=== PATIENT | male | born 1955 | race Caucasian/White ===

== ENCOUNTER 2024-01-25 12:59 | Outpatient (RCR) | payer BC, SELFPAY | END 2024-01-25 23:59 | disposition home or self-care (01) | LOC: RPT 12:59 | PROVIDERS: ATTENDING PHYSICIAN Orthopaedic Surgery; FAMILY PHYSICIAN Internal Medicine Geriatric Medicine | DX: M17.12 Unilateral primary osteoarthritis, left knee (principal); Z73.6 Limitation of activities due to disability; S83.412D Sprain of medial collateral ligament of left knee, subsequent encounter; S83.512D Sprain of anterior cruciate ligament of left knee, subsequent encounter; X58.XXXD Exposure to other specified factors, subsequent encounter | CPT/HCPCS: 97010; 97110; 97140; 97162 ==

== ENCOUNTER 2024-02-21 16:53 | Outpatient (RCR) | payer BC, SELFPAY | END 2024-02-21 23:59 | disposition home or self-care (01) | LOC: RPT 16:53 | PROVIDERS: ATTENDING PHYSICIAN Orthopaedic Surgery; FAMILY PHYSICIAN Internal Medicine Geriatric Medicine | DX: M17.12 Unilateral primary osteoarthritis, left knee (principal); S83.412D Sprain of medial collateral ligament of left knee, subsequent encounter; S83.512D Sprain of anterior cruciate ligament of left knee, subsequent encounter; Z73.6 Limitation of activities due to disability | CPT/HCPCS: 97110; 97112; 97530 ==

== ENCOUNTER 2024-03-22 16:54 | Outpatient (RCR) | payer BC, SELFPAY | END 2024-03-22 23:59 | disposition home or self-care (01) | LOC: RPT 16:54 | PROVIDERS: ATTENDING PHYSICIAN Orthopaedic Surgery; FAMILY PHYSICIAN Internal Medicine Geriatric Medicine | DX: M17.12 Unilateral primary osteoarthritis, left knee (principal); S83.412D Sprain of medial collateral ligament of left knee, subsequent encounter; S83.512D Sprain of anterior cruciate ligament of left knee, subsequent encounter; Z73.6 Limitation of activities due to disability; M62.81 Muscle weakness (generalized) | CPT/HCPCS: 97110; 97112; 97140; 97530 ==

== ENCOUNTER 2024-04-05 16:57 | Outpatient (RCR) | payer BC, SELFPAY | END 2024-04-06 07:36 | disposition home or self-care (01) | LOC: RPT 16:57 | PROVIDERS: ATTENDING PHYSICIAN Orthopaedic Surgery; FAMILY PHYSICIAN Internal Medicine Geriatric Medicine | DX: M17.12 Unilateral primary osteoarthritis, left knee (principal); S83.412D Sprain of medial collateral ligament of left knee, subsequent encounter; S83.512D Sprain of anterior cruciate ligament of left knee, subsequent encounter; Z73.6 Limitation of activities due to disability | CPT/HCPCS: 97110; 97112; 97530 ==

== ENCOUNTER → 2024-04-07 08:23 | Outpatient (REF) | payer BC, SELFPAY ==
[2024-04-07 09:29] LABS: % Basophils 1.4 % (0-2); % Eosinophils 1.4 % (0-6); % Immature Granulocytes 0.2 % (0-0.5); % Lymphocytes 38.8 % (20.5-51.1); % Monocytes 6.5 % (1.7-9.3); % Neutrophils 51.7 % (42.2-75.2); Absolute Basophils 0.1 10^3/uL (0-0.2); Absolute Eosinophils 0.1 10^3/uL (0-0.7); Absolute Lymphocytes 1.7 10^3/uL (1.2-3.4); Absolute Monocytes 0.3 10^3/uL (0.1-0.6); Absolute Neutrophils 2.2 10^3/uL (1.4-6.5); Hematocrit 41.5 % (39.0-52.0); Hemoglobin 12.5 g/dL (13.0-18.0); Mean Corp Hgb Conc. 30.1 g/dL (33.0-37.0); Mean Corpuscular Hgb 19.9 pg (27.0-31.0); Mean Corpuscular Volume 66.2 fL (80.0-94.0); Mean Platelet Volume 9.3 fL (7.4-10.4); Nucleated Red Blood Cells % 0 % (-); Platelet Count 200 10^3/uL (130-400); Red Blood Cell Count 6.27 10^6/uL (4.70-6.10); Red Cell Dist. Width 19.2 % (11.5-14.5); White Blood Cell Count 4.3 10^3/uL (4.8-10.8)
[2024-04-07 09:46] LABS: Urine Albumin Negative (Neg - Trace); Urine Bilirubin Negative (Negative); Urine Character Clear (Clear); Urine Color Yellow; Urine Glucose Negative (Negative); Urine Ketone Negative (Negative); Urine Leukocyte Negative (Negative); Urine Nitrite Negative (Negative); Urine Occult Blood Negative (Negative); Urine Urobilinogen Negative (Neg - 1+); Urine pH 6.5 (5.0-9.0)
[2024-04-07 10:20] LABS: ALT (SGPT) 26 U/L (0-50); AST (SGOT) 22 U/L (17-59); Albumin 3.9 g/dl (3.5-5.0); Alkaline Phosphatase 49 U/L (38-126); Blood Urea Nitrogen 16 mg/dl (9-20); Calcium 9.4 mg/dl (8.4-10.2); Carbon Dioxide 29 mmol/L (22-30); Chloride 106 mmol/L (98-107); Glucose 155 mg/dl (70-99); HDL Cholesterol 39 mg/dl; LDL Cholesterol, Calculated 81 mg/dl; Potassium 4.6 mmol/L (3.5-5.1); Sodium 137 mmol/L (135-145); Total Bilirubin 0.7 mg/dl (0.2-1.3); Total Cholesterol 136 mg/dl (50-199); Total Protein 6.3 g/dl (6.3-8.2); Triglyceride 84 mg/dl (10-149); Very Low Density Lipoprotein 16 mg/dl (0-30); eGFR > 60.00
[2024-04-07 10:43] LABS: Urine Protein < 5 mg/dl
== END ==
LOC: REG 08:23
PROVIDERS: ATTENDING PHYSICIAN Internal Medicine Endocrinology, Diabetes & Metabolism; FAMILY PHYSICIAN Internal Medicine Geriatric Medicine
DX: E11.9 Type 2 diabetes mellitus without complications (principal); I10 Essential (primary) hypertension; E78.2 Mixed hyperlipidemia; K21.9 Gastro-esophageal reflux disease without esophagitis; G47.33 Obstructive sleep apnea (adult) (pediatric); N40.1 Benign prostatic hyperplasia with lower urinary tract symptoms; R06.02 Shortness of breath
CPT/HCPCS: 36415; 80053; 80061; 81003; 82570; 84156; 85025

== ENCOUNTER → 2024-08-13 07:40 | Outpatient (REF) | payer BC, SELFPAY ==
[2024-08-13 08:29] LABS: % Basophils 0.9 % (0-2); % Eosinophils 1.5 % (0-6); % Immature Granulocytes 0.2 % (0-0.5); % Lymphocytes 38.7 % (20.5-51.1); % Neutrophils 52.7 % (42.2-75.2); Absolute Basophils 0.1 10^3/uL (0-0.2); Absolute Eosinophils 0.1 10^3/uL (0-0.7); Absolute Lymphocytes 2.1 10^3/uL (1.2-3.4); Absolute Monocytes 0.3 10^3/uL (0.1-0.6); Absolute Neutrophils 2.8 10^3/uL (1.4-6.5); Hematocrit 40.4 % (39.0-52.0); Hemoglobin 12.4 g/dL (13.0-18.0); Mean Corp Hgb Conc. 30.7 g/dL (33.0-37.0); Mean Corpuscular Volume 65.1 fL (80.0-94.0); Mean Platelet Volume 9.5 fL (7.4-10.4); Nucleated Red Blood Cells % 0 % (-); Platelet Count 188 10^3/uL (130-400); Red Blood Cell Count 6.21 10^6/uL (4.70-6.10); Red Cell Dist. Width 18.8 % (11.5-14.5); Urine Albumin Negative (Neg - Trace); Urine Bilirubin Negative (Negative); Urine Character Clear (Clear); Urine Color Yellow; Urine Glucose 2+ (Negative); Urine Ketone Negative (Negative); Urine Leukocyte Negative (Negative); Urine Nitrite Negative (Negative); Urine Occult Blood Trace (Negative); Urine Urobilinogen Negative (Neg - 1+); White Blood Cell Count 5.3 10^3/uL (4.8-10.8)
[2024-08-13 08:59] LABS: ALT (SGPT) 31 U/L (0-50); AST (SGOT) 23 U/L (17-59); Albumin 4.1 g/dl (3.5-5.0); Alkaline Phosphatase 53 U/L (38-126); Blood Urea Nitrogen 25 mg/dl (9-20); Calcium 9.6 mg/dl (8.4-10.2); Carbon Dioxide 26 mmol/L (22-30); Chloride 105 mmol/L (98-107); Glucose 193 mg/dl (70-99); HDL Cholesterol 32 mg/dl; LDL Cholesterol, Calculated 78 mg/dl; Potassium 4.5 mmol/L (3.5-5.1); Sodium 143 mmol/L (135-145); Total Bilirubin 0.5 mg/dl (0.2-1.3); Total Cholesterol 148 mg/dl (50-199); Total Protein 6.3 g/dl (6.3-8.2); Triglyceride 194 mg/dl (10-149); Very Low Density Lipoprotein 38 mg/dl (0-30)
[2024-08-13 09:14] LABS: Vitamin D, 25-OH*** 15.9 ng/mL (30-80)
[2024-08-13 09:18] LABS: Urine Red Blood Cell 0-2 /HPF (0-2); Urine Squamous Cell 0-2 /LPF (Few); Urine White Cell 0-2 /HPF (0-5)
[2024-08-13 09:49] LABS: Microalbumin, Random Urine 1.7 mg/dl (0.6-1.7); Microalbumin/creatinine Ratio 10.7 mg/g
[2024-08-13 11:28] LABS: Glycohemoglobin (HgbA1c) 8.4 % (4.0-5.6)
== END ==
LOC: REG 07:40
PROVIDERS: ATTENDING PHYSICIAN Internal Medicine Geriatric Medicine
DX: E11.9 Type 2 diabetes mellitus without complications (principal); I10 Essential (primary) hypertension; E78.2 Mixed hyperlipidemia; K21.9 Gastro-esophageal reflux disease without esophagitis; G47.33 Obstructive sleep apnea (adult) (pediatric); N40.1 Benign prostatic hyperplasia with lower urinary tract symptoms; R06.02 Shortness of breath; I11.9 Hypertensive heart disease without heart failure; E11.41 Type 2 diabetes mellitus with diabetic mononeuropathy; R09.81 Nasal congestion; Z13.89 Encounter for screening for other disorder; L30.0 Nummular dermatitis
CPT/HCPCS: 36415; 80053; 80061; 81003; 81015; 82043; 82306; 82570; 83036; 85025

== ENCOUNTER → 2024-11-22 06:18 | Outpatient (REF) | payer BC, SELFPAY ==
[2024-11-22 07:17] LABS: % Basophils 1.3 % (0-2); % Eosinophils 1.7 % (0-6); % Immature Granulocytes 0.2 % (0-0.5); % Lymphocytes 40.8 % (20.5-51.1); % Monocytes 6.7 % (1.7-9.3); % Neutrophils 49.3 % (42.2-75.2); Absolute Basophils 0.1 10^3/uL (0-0.2); Absolute Eosinophils 0.1 10^3/uL (0-0.7); Absolute Lymphocytes 1.9 10^3/uL (1.2-3.4); Absolute Monocytes 0.3 10^3/uL (0.1-0.6); Absolute Neutrophils 2.4 10^3/uL (1.4-6.5); Hematocrit 40.1 % (39.0-52.0); Hemoglobin 12.3 g/dL (13.0-18.0); Mean Corp Hgb Conc. 30.7 g/dL (33.0-37.0); Mean Corpuscular Hgb 19.8 pg (27.0-31.0); Mean Corpuscular Volume 64.6 fL (80.0-94.0); Mean Platelet Volume 9.1 fL (7.4-10.4); Nucleated Red Blood Cells % 0 % (-); Platelet Count 195 10^3/uL (130-400); Red Blood Cell Count 6.21 10^6/uL (4.70-6.10); Red Cell Dist. Width 18.8 % (11.5-14.5); White Blood Cell Count 4.8 10^3/uL (4.8-10.8)
[2024-11-22 07:18] LABS: Urine Albumin Trace (Neg - Trace); Urine Bilirubin Negative (Negative); Urine Character Clear (Clear); Urine Color Yellow; Urine Glucose Negative (Negative); Urine Ketone Negative (Negative); Urine Leukocyte Negative (Negative); Urine Nitrite Negative (Negative); Urine Occult Blood Trace (Negative); Urine Urobilinogen Negative (Neg - 1+)
[2024-11-22 07:35] LABS: ALT (SGPT) 26 U/L (0-50); AST (SGOT) 19 U/L (17-59); Albumin 4.2 g/dl (3.5-5.0); Alkaline Phosphatase 38 U/L (38-126); Blood Urea Nitrogen 24 mg/dl (9-20); Calcium 9.4 mg/dl (8.4-10.2); Carbon Dioxide 29 mmol/L (22-30); Chloride 104 mmol/L (98-107); Glucose 108 mg/dl (70-99); HDL Cholesterol 36 mg/dl; LDL Cholesterol, Calculated 94 mg/dl; Potassium 4.6 mmol/L (3.5-5.1); Sodium 139 mmol/L (135-145); Total Bilirubin 0.6 mg/dl (0.2-1.3); Total Cholesterol 149 mg/dl (50-199); Total Protein 6.5 g/dl (6.3-8.2); Triglyceride 99 mg/dl (10-149); Very Low Density Lipoprotein 19 mg/dl (0-30); eGFR > 60.00
[2024-11-22 08:03] LABS: Urine Mucus Few
[2024-11-22 08:06] LABS: Urine Amorphous Seen; Urine White Cell 0-2 /HPF (0-5)
[2024-11-22 10:41] LABS: Glycohemoglobin (HgbA1c) 8.5 % (4.0-5.6)
[2024-11-23 22:38] LABS: C-Peptide 0.7 ng/mL (0.5-3.3)
== END ==
LOC: REG 06:18
PROVIDERS: ATTENDING PHYSICIAN Internal Medicine Geriatric Medicine
DX: E11.9 Type 2 diabetes mellitus without complications (principal); I10 Essential (primary) hypertension; E78.2 Mixed hyperlipidemia; K21.9 Gastro-esophageal reflux disease without esophagitis; G47.33 Obstructive sleep apnea (adult) (pediatric); N40.1 Benign prostatic hyperplasia with lower urinary tract symptoms; R06.02 Shortness of breath; I11.9 Hypertensive heart disease without heart failure; E11.41 Type 2 diabetes mellitus with diabetic mononeuropathy; R09.81 Nasal congestion; Z13.89 Encounter for screening for other disorder; L30.0 Nummular dermatitis; E55.9 Vitamin D deficiency, unspecified
CPT/HCPCS: 36415; 80053; 80061; 81003; 81015; 83036; 84681; 85025

== ENCOUNTER → 2024-12-28 14:19 | Outpatient (REF) | payer BC, SELFPAY | LOC: RAD 14:19 | PROVIDERS: ATTENDING PHYSICIAN Internal Medicine Geriatric Medicine | DX: R31.9 Hematuria, unspecified (principal) | CPT/HCPCS: 76770 ==

== ENCOUNTER → 2025-04-17 07:32 | Outpatient (REF) | payer BC, SELFPAY ==
[2025-04-17 08:52] LABS: Glycohemoglobin (HgbA1c) 8.6 % (4.0-5.6)
[2025-04-17 09:07] LABS: Microalbumin, Random Urine 2.3 mg/dl (0.6-1.7)
[2025-04-17 09:40] LABS: ALT (SGPT) 30 U/L (0-50); AST (SGOT) 19 U/L (17-59); Albumin 4.1 g/dl (3.5-5.0); Alkaline Phosphatase 37 U/L (38-126); Blood Urea Nitrogen 19 mg/dl (9-20); Calcium 9.4 mg/dl (8.4-10.2); Carbon Dioxide 28 mmol/L (22-30); Chloride 110 mmol/L (98-107); Glucose 146 mg/dl (70-99); HDL Cholesterol 32 mg/dl; LDL Cholesterol, Calculated 96 mg/dl; Potassium 4.6 mmol/L (3.5-5.1); Sodium 143 mmol/L (135-145); Total Bilirubin 0.7 mg/dl (0.2-1.3); Total Cholesterol 147 mg/dl (50-199); Total Protein 6.4 g/dl (6.3-8.2); Triglyceride 98 mg/dl (10-149); Very Low Density Lipoprotein 19 mg/dl (0-30); eGFR > 60.00
== END ==
LOC: REG 07:32
PROVIDERS: ATTENDING PHYSICIAN Internal Medicine Endocrinology, Diabetes & Metabolism; FAMILY PHYSICIAN Internal Medicine Geriatric Medicine
DX: E11.9 Type 2 diabetes mellitus without complications (principal)
CPT/HCPCS: 36415; 80053; 80061; 82043; 82570; 83036

== ENCOUNTER → 2025-09-14 07:15 | Outpatient (REF) | payer BC, SELFPAY ==
[2025-09-14 08:55] LABS: ALT (SGPT) 31 U/L (0-50); AST (SGOT) 20 U/L (17-59); Albumin 4.1 g/dl (3.5-5.0); Alkaline Phosphatase 39 U/L (38-126); Blood Urea Nitrogen 22 mg/dl (9-20); Calcium 9.3 mg/dl (8.4-10.2); Carbon Dioxide 30 mmol/L (22-30); Chloride 106 mmol/L (98-107); Glucose 166 mg/dl (70-99); Potassium 4.2 mmol/L (3.5-5.1); Sodium 141 mmol/L (135-145); Total Protein 6.5 g/dl (6.3-8.2); eGFR > 60.00
[2025-09-14 10:32] LABS: Glycohemoglobin (HgbA1c) 9.5 % (4.0-5.6)
== END ==
LOC: REG 07:15
PROVIDERS: ATTENDING PHYSICIAN Internal Medicine Endocrinology, Diabetes & Metabolism; FAMILY PHYSICIAN Internal Medicine Geriatric Medicine
DX: E11.9 Type 2 diabetes mellitus without complications (principal)
CPT/HCPCS: 36415; 80053; 83036

== ENCOUNTER 2025-11-16 11:59 | Inpatient (IN) | payer BC, SELFPAY ==
[2025-11-15 14:42] VITALS: BP 186/98
[2025-11-15 15:12] LABS: Hematocrit 38.0 % (39.0-52.0); Hemoglobin 11.7 g/dL (13.0-18.0); Mean Corp Hgb Conc. 30.8 g/dL (33.0-37.0); Mean Corpuscular Volume 63.8 fL (80.0-94.0); Nucleated Red Blood Cells % 0 % (-); Platelet Count 203 10^3/uL (130-400); Red Cell Dist. Width 18.6 % (11.5-14.5)
[2025-11-15 15:23] LABS: ALT (SGPT) 28 U/L (0-50); AST (SGOT) 25 U/L (17-59); Albumin 3.9 g/dl (3.5-5.0); Alkaline Phosphatase 44 U/L (38-126); Blood Urea Nitrogen 21 mg/dl (9-20); Calcium 9.0 mg/dl (8.4-10.2); Carbon Dioxide 25 mmol/L (22-30); Chloride 106 mmol/L (98-107); Glucose 106 mg/dl (70-99); Potassium 4.1 mmol/L (3.5-5.1); Sodium 137 mmol/L (135-145); Total Protein 6.2 g/dl (6.3-8.2); eGFR > 60.00
--- NOTE | 2025-11-15 18:19 | ED.GENMED ---
History of Present Illness
<Marisela Green PA-C - Last Filed: 11/15/25 20:34>
General
Chief Complaint: Skin Problem
Time Seen by Provider: 11/15/25 18:05
History of Present Illness
History of Present Illness:
Daquan is a 70-year-old male with past medical history of insulin-dependent diabetes who presents complaining of left lower leg wound after hitting it on a cardboard box several days ago at work. Reports that wounds have not been getting any better
and he noticed redness surrounding them which prompted him to come for evaluation. Notes that he has had chronic lower extremity edema for the past 3 to 4 years and is unable to control with just compression socks.
Past History
<Marisela Green PA-C - Last Filed: 11/15/25 20:34>
Past History
ED Past Medical History: IDDM
ED Past Surgical History: Orthopedic
Social History
Tobacco: Non-smoker
Alcohol: None
Drug: None
Personal:
Living: with family
Employment: Employed
Family History
Family History: Diabetes; Negative Hypertension, Early CAD, Asthma or Cancer
Phy Exam
<Marisela Green PA-C - Last Filed: 11/15/25 20:34>
General Physical Exam
General Presentation: well appearing and no apparent distress
General Skin: warm and dry
General Habitus: normal
General Mental: alert
General Hydration: appears well hydrated
ENT Exam
ENT Exam: EOMI, pharynx normal, neck supple and normocephalic
Eye Exam
Eye Exam: PERRL, cornea clear and conjunctiva normal
Cardiovascular Exam
Cardiovascular Exam: regular rate/rhythm, no edema, no murmur and normal peripheral pulses
Pulmonary Exam
Pulmonary Exam: lungs clear, no respiratory distress, no rales, no crackles, no rhonchi, no stridor, no wheezing and no cough
Gastrointestinal Exam
Gastrointestinal Exam: normal bowel sounds, non tender, soft, no organomegaly, no pulsatile mass and non distended
Neurological Exam
Neurological Exam: alert, oriented x3, no motor deficits and speech normal
Musculoskeletal Exam
Musculoskeletal Exam: edema (Bilateral lower extremity edema)
Skin Exam
Skin Exam: erythema, warmth and other (7 x 4 cm wound to left anterior lower leg with surrounding erythema and warmth)
Psychiatric Exam
Psychiatric Exam: normal mood/affect
Course
<Marisela Green PA-C - Last Filed: 11/15/25 20:34>
Orders/Labs/Results
Orders:
Orders
11/15/25 14:53
Complete Blood Count/With Diff Urgent
Comprehensive Metabolic Panel Urgent
NT-proBNP Urgent
11/15/25 18:25
CeFAZolin 2 GRAM [Ancef] 2 grams in 10 ml IV NOW
11/15/25 19:00
Admit/Transfer Patient As Directed
Co-Sign Provider:
Level of Care: Observation services
Assign to:: Medical/Surgical
Physician / Group: Gabriel
Diagnosis: Cellulitis
11/15/25 19:01
Code Status As Directed
Resuscitation Status: Full Code
PRN Pain Medication Management As Directed
May give lesser potent ordered pain med per pt: Yes
preference::
Protocol:: Medication orders for pain may be administered in a
manner that supports deferring to patient preference
when the pt is:
- Requesting an ordered lesser potent pain medication.
Least to most potent pain medications are defined
as: acetaminophen < NSAID < tramadol < opioids
(morphine, oxycodone, hydromorphone).
- Requesting a lesser dose of the same medication IF
ORDERED.
- Requesting a less intrusive route of administration
if both routes are prescribed by the provider (PO <
IV).
Abnormal Lab Results
11/15/25
14:53
Hgb 11.7 L g/dL
(13.0-18.0)
Hct 38.0 L %
(39.0-52.0)
MCV 63.8 L fL
(80.0-94.0)
MCH 19.6 L pg
(27.0-31.0)
MCHC 30.8 L g/dL
(33.0-37.0)
RDW 18.6 H %
(11.5-14.5)
BUN 21 H mg/dl
(9-20)
Glucose 106 H mg/dl
(70-99)
Total Protein 6.2 L g/dl
(6.3-8.2)
11/15/25 14:53
11/15/25 14:53
Vital Signs
Initial and Last Documented VS:
Initial Vital Signs
Temp Pulse Resp BP Pulse Ox
36.6 C 91 18 186/98 96
11/15/25 14:42 11/15/25 14:42 11/15/25 14:42 11/15/25 14:42 11/15/25 14:42
Last Documented Vital Signs
Temp Pulse Resp BP Pulse Ox
36.8 C 68 14 166/84 98
11/15/25 18:35 11/15/25 18:35 11/15/25 18:35 11/15/25 18:35 11/15/25 18:35
Francislt;Randall Bradford, DO - Last Filed: 11/15/25 18:34>
Orders/Labs/Results
Orders:
Orders
11/15/25 14:53
Complete Blood Count/With Diff Urgent
Comprehensive Metabolic Panel Urgent
NT-proBNP Urgent
11/15/25 18:25
CeFAZolin 2 GRAM [Ancef] 2 grams in 10 ml IV NOW
11/15/25 19:00
Admit/Transfer Patient As Directed
Co-Sign Provider:
Level of Care: Observation services
Assign to:: Medical/Surgical
Physician / Group: Gabriel
Diagnosis: Cellulitis
11/15/25 19:01
Code Status As Directed
Resuscitation Status: Full Code
PRN Pain Medication Management As Directed
May give lesser potent ordered pain med per pt: Yes
preference::
Protocol:: Medication orders for pain may be administered in a
manner that supports deferring to patient preference
when the pt is:
- Requesting an ordered lesser potent pain medication.
Least to most potent pain medications are defined
as: acetaminophen < NSAID < tramadol < opioids
(morphine, oxycodone, hydromorphone).
- Requesting a lesser dose of the same medication IF
ORDERED.
- Requesting a less intrusive route of administration
if both routes are prescribed by the provider (PO <
IV).
Abnormal Lab Results
11/15/25
14:53
Hgb 11.7 L g/dL
(13.0-18.0)
Hct 38.0 L %
(39.0-52.0)
MCV 63.8 L fL
(80.0-94.0)
MCH 19.6 L pg
(27.0-31.0)
MCHC 30.8 L g/dL
(33.0-37.0)
RDW 18.6 H %
(11.5-14.5)
BUN 21 H mg/dl
(9-20)
Glucose 106 H mg/dl
(70-99)
Total Protein 6.2 L g/dl
(6.3-8.2)
11/15/25 14:53
11/15/25 14:53
Vital Signs
Initial and Last Documented VS:
Initial Vital Signs
Temp Pulse Resp BP Pulse Ox
36.6 C 91 18 186/98 96
11/15/25 14:42 11/15/25 14:42 11/15/25 14:42 11/15/25 14:42 11/15/25 14:42
Last Documented Vital Signs
Temp Pulse Resp BP Pulse Ox
36.8 C 68 14 166/84 98
11/15/25 18:35 11/15/25 18:35 11/15/25 18:35 11/15/25 18:35 11/15/25 18:35
<Marisela Green PA-C - Last Filed: 11/15/25 20:34>
MDM/Problems Addressed
Differential Diagnosis Includes:
Exam consistent with wound from trauma early this week and Surrounding cellulitis. Discussed outpatient management with oral antibiotics and close follow-up however patient prefers given his complex medical history and poor healing wounds to be
admitted for antibiotics and evaluation. Discussed case with hospitalist who accept patient to their service. 1 dose of Ancef given in the emergency department.
<Marisela Green PA-C - Last Filed: 11/15/25 20:34>
*Pulse Oximetry
SaO2: 96
Oxygen Mode of Delivery: Room air
Patient hypoxic: no
*Critical Care Note
Total Time (30-74mins, 75-104mins- exclusive of procedures): Not Applicable
ED Attending Note
<Marisela Green PA-C - Last Filed: 11/15/25 20:34>
-
Portions of this chart may have been created with voice recognition software.� Occasional wrong word or��sound alike� substitutions may have occurred due to the inherent limitations of voice recognition software.
<Randall Bradford, DO - Last Filed: 11/15/25 18:34>
ED Attending Note
Patient seen and examined by attending physician: Yes
I performed the substantive portion of visit, reviewed & personally made and approve the management plan that is documented in note by myself or JONATHAN.: Yes
ED Attending Note:
I have seen and evaluated the patient with a [id number] encounter. I have spoken to the advance practicer provider and involved in the medical history, the physical exam, medical decision making.
Evaluation and management service: agree unless noted differently below.
Results interpretation: agree unless noted differently below.
Focused HPI: 70-year-old male presenting with wounds noted to his left leg. Patient states this started few days ago. Patient complains of worsening pain
Physical exam: Bilateral leg edema noted. 2 large wounds noted to anterior aspect of left mid leg with surrounding cellulitic changes. Distal pulses +2
Medical Decision Making: Given his history of diabetes and the nonhealing leg wounds, will start antibiotics and admit
Discharge Plan
Interventions
Interventions:
*General Assessment Last Done: 11/15/25 14:45
*Neglect/Abuse Screening Last Done: 11/15/25 14:45
*ED COVID-19 Vaccine History Last Done: 11/15/25 14:45
*ED Influenza Vaccine History Last Done: 11/15/25 14:45
[facility] Risk Assessment Tool Last Done: 11/15/25 18:35
*Risk Screen - Suicide (C-SSRS) Last Done: 11/15/25 14:45
ED-Skin Assessment Last Done: 11/15/25 18:40
[2025-11-15 18:35] VITALS: BP 166/84; BMI 35.4
[2025-11-15] MEDS: ANCEF 10 IV (18:45)
--- NOTE | 2025-11-15 18:47 | HPS.HSE ---
Family Physician
-
Family Physician: Michoacano Jolly
Chief Complaint
-
Left lower extremity cellulitis
History of Present Illness
This is a 70-year-old male with past medical history significant for insulin-dependent diabetes and chronic lymphedema who presents to the emergency department with a nonhealing wound in the left lower extremity as well as swelling and tenderness.
Patient had about minor trauma with excoriation and laceration to the left lower extremity when he smacked his leg against a Wood box. He has been applying topical agents however he has developed worsening redness. He reports that he is prone to
these wounds due to his chronic swelling. He states he started getting swelling in his legs about 4 years ago. A workup was negative for congestive heart failure. He is seeking some help regarding management of his lymphedema. He he denies any
recent antibiotic use. He denies any recent hospitalization. He has not had any fevers or chills.
Patient reports that he has been unable to obtain his long-acting insulin since February. He has been managing with Premeal insulin and diet control. He states that his morning glucose was around over 200 this morning whereas yesterday it was 107.
Unknown last A1c.
In the emergency department he was afebrile, blood pressure was elevated at 186/98, pulse rate was 91, oxygen saturation was 96% with a temp of 98.5. CBC was completely unremarkable. Electrolytes BUN/creatinine were all within normal range.
Medical History
Past Medical History
Past Medical History: Reports IDDM and Other (Chronic lymphedema)
Past Surgical History: Reports Appendectomy
Social History
Tobacco: Non-smoker
Alcohol: None
Drug: None
Personal:
Living: Alone
Employment: Employed
Family History
Family History: Not pertinent
Allergies / Home Medications
Allergies reflects when Allergies were last updated in [facility].
Home Medications with original date entered in [facility]
Allergy/Medication List:
Allergies
Allergy/AdvReac Type Severity Reaction Status Date / Time
No Known Allergies Allergy Verified 11/15/25 14:46
Home Medications
insulin aspart U-100 100 unit/mL subcutaneous solution (Novolog U-100 Insulin aspart) 1 dose SC AC 12/31/11
insulin glargine 100 unit/mL subcutaneous solution (Lantus U-100 Insulin) 40 units SC HS 12/31/11
multivitamin (Ivs-Xyddeq-Slouf tablet) 1 ea PO MOTH 12/31/11
cephalexin 500 mg capsule 500 mg PO BID #14 caps 07/30/15
ciprofloxacin HCl 0.3 % eye drops 2 drp ophthalmic (eye) Q4H 5 days #5 mL 02/17/23
oxycodone-acetaminophen 5 mg-325 mg tablet (Percocet) 1 tab PO TID PRN Pain #10 tabs 12/04/23
Review of Systems
-
Constitutional: Reports No Symptoms
EENT: Reports No Symptoms
Respiratory: Reports No Symptoms
Cardiac: Reports No Symptoms
Abdomen/GI: Reports No Symptoms
: Reports No Symptoms
Musculoskeletal: Reports No Symptoms
Skin: Reports Rash
Neurological: Reports No Symptoms
Endocrine: Reports No Symptoms
Hematologic/Lymphatic: Reports No Symptoms
Psych: Reports No Symptoms
Physical Exam
Vital Signs
Vital Signs
Temp Pulse Resp BP Pulse Ox
98.2 F 68 14 166/84 98
11/15/25 18:35 11/15/25 18:35 11/15/25 18:35 11/15/25 18:35 11/15/25 18:35
Physical Exam
General: Well Developed, Well Nourished and No Apparent Distress
HEENT: NormoCephalic, Moist mucous membranes and Atraumatic
Respiratory: Clear
Cardiac: S1/S2 and Regular Rhythm; No Murmur or Rub
GI: Soft, Non Tender, Non Distended and Normal Bowel Sounds; No Organomegaly
Rectal: Deferred by Provider
Musculoskeletal: No Clubbing, No Cyanosis, Edema, Left Lower Extremity (2+ nonpitting) and Edema, Right Lower Extremity (2+ nonpitting)
Skin: Rash (Left lower extremity superficial laceration with a slightly open nondraining wound. He does have surrounding erythema, mild induration and tenderness to palpation consistent with cellulitis)
Neuro: AO x 3 and Nonfocal/grossly intact
Psych: Calm
Laboratory Results
-
11/15/25 14:53
11/15/25 14:53
Laboratory Results
Total Bilirubin 0.5 mg/dl (0.2-1.3) 11/15/25 14:53
AST 25 U/L (17-59) 11/15/25 14:53
ALT 28 U/L (0-50) 11/15/25 14:53
Alkaline Phosphatase 44 U/L (38-126) 11/15/25 14:53
Data Reviewed
-
Lab Data: Labs Reviewed by me
Old Records: Reviewed
Impression/Plan
-
IMPRESSION:
70-year-old or insulin-dependent diabetes who presents to ED with cellulitis of the left lower extremity after developing a superficial open wound from laceration against a cardboard box.
PLAN:
Cellulitis - LLE, no sepsis. Likely complicated by chronic lymphedema. No recent antibiotics and no recent hospitalizations.
- admit to med/surg observation
- IV cephalexin
- check mrsa swab
- wound care consult
- elevate both legs
- suggested compression stockens
- will start hctz given elevated bp
DM II - insulin dependent
- lantus 10 hs
- aspart 6 tidac
- low dose sliding scale for now
- check a1c
- needs case management for long acting insulin
HTN - denies h/o but SBP 180/98 here
- check ecg
- start hctz given edema
- monitor BP and consider initiating ARB
DVT PPX - lovenox sq
Code status - Full Code
--- NOTE | 2025-11-15 19:27 | EDRN ---
Pt has had LLE swelling, redness and 2 superficial wounds for the past few years. Pt says they were treated at one time but did not get better. Pt is insulin dependent diabetic and monitors his sugars. Today it was in the 200's and yesterday it
was 107. Pt says he is supposed to take insulin at nighttime but due to insurance and changing formulas, he has not taken it since February. Pt does take other insulin with meals. No fever/chills/cough, drainage from wounds. Pt says he cleans the
area daily, applies neosporin and wraps his LLE.
[2025-11-15 20:29] VITALS: BP 172/78
[2025-11-15 22:54] VITALS: BP 178/74
[2025-11-16 00:39] LABS: Glucose - Point of Care 196 mg/dl (70-99)
[2025-11-16 00:53] VITALS: BP 186/97; BMI 34.9
[2025-11-16] MEDS: LANTUS 0.1 UNITS SC ×2 (01:29→22:01)
--- NOTE | 2025-11-16 02:04 | PTCARENOTE ---
pt is aaox3, report pain and tenderness to LLE. LLE cellulitis w/ 2 spots - currently not draining, and erythema, mild induration. weak pedal pulse. pt has a hx of chronic lymphedema +2edema bilateral. legs elevated on pillow. pt reported pain w/
walking. pt oriented to room w/ call wesley in reach.
[2025-11-16] MEDS: ORETIC 12.5 MG PO ×2 (02:49→09:13)
[2025-11-16] MEDS: ANCEF 10 IV ×3 (02:50→18:23)
[2025-11-16 02:57] VITALS: BP 166/94
[2025-11-16] MEDS: XALATAN OPHTHALMIC SOLUTION BOTH EYES (02:57)
[2025-11-16 05:24] VITALS: BMI 34.9
[2025-11-16 07:00] VITALS: BP 169/91
[2025-11-16 07:26] LABS: Hematocrit 38.3 % (39.0-52.0); Hemoglobin 11.6 g/dL (13.0-18.0); Mean Corp Hgb Conc. 30.3 g/dL (33.0-37.0); Mean Corpuscular Volume 64.9 fL (80.0-94.0); Platelet Count 194 10^3/uL (130-400); Red Cell Dist. Width 18.4 % (11.5-14.5)
[2025-11-16 07:57] LABS: Blood Urea Nitrogen 20 mg/dl (9-20); Calcium 9.2 mg/dl (8.4-10.2); Carbon Dioxide 29 mmol/L (22-30); Chloride 107 mmol/L (98-107); Estimated Creatinine Clearance 71 ml/min; Glucose 159 mg/dl (70-99); Potassium 4.4 mmol/L (3.5-5.1); Sodium 139 mmol/L (135-145); eGFR > 60.00
[2025-11-16 08:39] LABS: Glucose - Point of Care 140 mg/dl (70-99)
[2025-11-16] MEDS: NOVOLOG FLEXPEN-LOW RESISTANCE SC ×2 (09:12→17:47)
[2025-11-16] MEDS: NOVOLOG FLEXPEN 8 UNITS SC ×3 (09:13→17:46)
--- NOTE | 2025-11-16 10:15 | CM ---
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
evaluation.
PCP: Dr. Jolly
Pharmacy: [facility] in [place]
Plan; Home when stable.
[2025-11-16 10:50] LABS: Glycohemoglobin (HgbA1c) 9.8 % (4.0-5.9)
[2025-11-16 12:53] LABS: Glucose - Point of Care 166 mg/dl (70-99)
[2025-11-16] MEDS: NOVOLOG FLEXPEN-LOW RESISTANCE 1 UNITS SC (13:22)
--- NOTE | 2025-11-16 14:06 | W.PN.HOSP.TC ---
Today's Communication/Plan
-
IV abx
start metformin
basal/bolus regimen-uncontrolled diabetes
monitor BP
Assessment / Plan
Assessment / Plan
General: Well Developed, Well Nourished and No Apparent Distress
HEENT: NormoCephalic, Moist mucous membranes and Atraumatic
Respiratory: Clear
Cardiac: S1/S2 and Regular Rhythm; No Murmur or Rub
GI: Soft, Non Tender, Non Distended and Normal Bowel Sounds; No Organomegaly
Rectal: Deferred by Provider
Musculoskeletal: No Clubbing, No Cyanosis, Edema, Left Lower Extremity (2+ nonpitting) and Edema, Right Lower Extremity (2+ nonpitting)
Skin: Rash (Left lower extremity superficial laceration with a slightly open nondraining wound. He does have surrounding erythema, mild induration and tenderness to palpation consistent with cellulitis)
Neuro: AO x 3 and Nonfocal/grossly intact
Psych: Calm
70-year-old or insulin-dependent diabetes who presents to ED with cellulitis of the left lower extremity after developing a superficial open wound from laceration against a cardboard box.
PLAN:
LLE cellulitis Likely complicated by chronic lymphedema. No recent antibiotics and no recent hospitalizations.
- IV cephalexin
- check mrsa swab
- wound care consult
- elevate both legs
DM II - insulin dependent
- lantus 10 hs
- aspart 6 tidac
- low dose sliding scale for now
- check a1c at 9.8
- also started metformin
- needs case management for long acting insulin
- Will need diabetic education.
HTN Parimary
- start hctz given edema
- monitor BP
DVT PPX - lovenox sq
Code status - Full Code
d/w with son over the phone details
will need close OP pcp f/u
Anticipated Discharge: > 48 hours
Subjective/Interval History
-
Date of Service: November 16, 2025
states of LE edema and injury of Left leg
Objective Data
-
Labs:
Laboratory Results
11/16/25
06:40
WBC 5.4
Hgb 11.6 L
Hct 38.3 L
Plt Count 194
Sodium 139
Potassium 4.4
Chloride 107
Carbon Dioxide 29
BUN 20
Creatinine 1.2
Glucose 159 H
Calcium 9.2
Vital Signs:
Vital Signs
Temp Pulse Resp BP Pulse Ox
97.8 F 66 14 169/91 97
11/16/25 07:00 11/16/25 07:00 11/16/25 07:00 11/16/25 07:00 11/16/25 07:00
Data Reviewed
-
Total Time Spent with Patient (in minutes): 55
[2025-11-16 15:00] VITALS: BP 168/95
[2025-11-16] MEDS: GLUCOPHAGE 500 MG PO (17:46)
[2025-11-16] MEDS: LOVENOX 40 MG SC (17:46)
[2025-11-16 17:47] LABS: Glucose - Point of Care 140 mg/dl (70-99)
[2025-11-16 21:48] LABS: Glucose - Point of Care 177 mg/dl (70-99)
[2025-11-16] MEDS: XALATAN OPHTHALMIC SOLUTION 1 DROP BOTH EYES (21:57)
[2025-11-16 23:09] VITALS: BP 174/95
[2025-11-17 01:58] LABS: Glucose - Point of Care 156 mg/dl (70-99)
[2025-11-17] MEDS: TYLENOL 650 MG PO ×2 (03:42→08:48)
[2025-11-17] MEDS: ANCEF 10 IV ×3 (03:45→18:07)
[2025-11-17 07:46] VITALS: BP 165/94
[2025-11-17 07:46] LABS: Glucose - Point of Care 187 mg/dl (70-99)
[2025-11-17] MEDS: ORETIC 12.5 MG PO (08:42)
[2025-11-17] MEDS: GLUCOPHAGE 500 MG PO ×2 (08:42→18:07)
[2025-11-17] MEDS: NOVOLOG FLEXPEN 8 UNITS SC ×3 (10:06→18:06)
[2025-11-17] MEDS: NOVOLOG FLEXPEN-LOW RESISTANCE 1 UNITS SC ×2 (10:06→18:06)
--- NOTE | 2025-11-17 11:20 | W.PN.HOSP.TC ---
Today's Communication/Plan
-
IV abx
insulin education
metformin
DM CABLE STRETCHER AND TESTER eval in am
wound care
Assessment / Plan
Assessment / Plan
General: Well Developed, Well Nourished and No Apparent Distress
HEENT: NormoCephalic, Moist mucous membranes and Atraumatic
Respiratory: Clear
Cardiac: S1/S2 and Regular Rhythm; No Murmur or Rub
GI: Soft, Non Tender, Non Distended and Normal Bowel Sounds; No Organomegaly
Rectal: Deferred by Provider
Musculoskeletal: No Clubbing, No Cyanosis, Edema, Left Lower Extremity (2+ nonpitting) and Edema, Right Lower Extremity (2+ nonpitting)
Skin: Rash (Left lower extremity superficial laceration with a slightly open nondraining wound. He does have surrounding erythema, mild induration and tenderness to palpation consistent with cellulitis)
Neuro: AO x 3 and Nonfocal/grossly intact
Psych: Calm
70-year-old or insulin-dependent diabetes who presents to ED with cellulitis of the left lower extremity after developing a superficial open wound from laceration against a cardboard box.
PLAN:
LLE cellulitis Likely complicated by chronic lymphedema. No recent antibiotics and no recent hospitalizations.
- IV cefazolin. Not much improvement. Cont additional 24h and reassess. Better to have evaluated by wound care in am.
- check mrsa swab -negative.
- wound care consult
- elevate both legs
DM II - insulin dependent
- lantus 10 hs
- aspart 6 tidac
- low dose sliding scale for now
- check a1c at 9.8
- also started metformin 500mg BID
- needs case management for long acting insulin
- Will need diabetic education.
HTN Parimary
- start hctz given edema
- monitor BP
-Per pt his BP was normal at recent PCP f/u. Would like avoid multiple BP meds. Trend for now.
DVT PPX - lovenox sq
Code status - Full Code
will need close OP pcp f/u
Anticipated Discharge: Within 24 hours
Subjective/Interval History
-
Date of Service: November 17, 2025
states of LLE pain
Objective Data
-
Vital Signs:
Vital Signs
Temp Pulse Resp BP Pulse Ox
97.5 F 78 18 165/94 95
11/17/25 07:46 11/17/25 07:46 11/17/25 07:46 11/17/25 07:46 11/17/25 11:02
I&O
11/16/25 11/17/25 11/18/25
06:59 06:59 06:59
Intake Total 480 / 480
Balance 480 / 480
Data Reviewed
-
Total Time Spent with Patient (in minutes): 55
[2025-11-17 11:56] LABS: Glucose - Point of Care 219 mg/dl (70-99)
[2025-11-17] MEDS: NOVOLOG FLEXPEN-LOW RESISTANCE 2 UNITS SC (13:15)
[2025-11-17 15:00] VITALS: BP 132/81
[2025-11-17 17:54] LABS: Glucose - Point of Care 154 mg/dl (70-99)
[2025-11-17] MEDS: LOVENOX 40 MG SC (18:07)
[2025-11-17] MEDS: LANTUS 0.1 UNITS SC (21:32)
[2025-11-17] MEDS: XALATAN OPHTHALMIC SOLUTION 1 DROP BOTH EYES (21:32)
[2025-11-17 21:42] LABS: Glucose - Point of Care 114 mg/dl (70-99)
[2025-11-17 23:15] VITALS: BP 160/88
[2025-11-18] MEDS: ANCEF 10 IV ×3 (03:49→18:06)
[2025-11-18 07:00] VITALS: BP 150/93
--- NOTE | 2025-11-18 07:28 | W.PN.HOSP.TC ---
Today's Communication/Plan
-
Continue cefazolin, added gabapentin
Assessment / Plan
Assessment / Plan
Impression:
70-year-old or insulin-dependent diabetes who presents to ED with cellulitis of the left lower extremity after developing a superficial open wound from laceration against a cardboard box.
Patient started on IV cefazolin, also started on insulin for uncontrolled diabetes.
Assessment/plan:
LLE Cellulitis (likely complicated by chronic lymphedema)
No recent antibiotics or hospitalizations.
Continue IV cefazolin , slowly improving.
Wound care consult in the morning.
MRSA swab checked � negative.
Elevate both legs.
11/18
Patient still with significant redness and now with neuropathic pain, required more monitoring as inpatient.
For now we will continue cefazolin, added gabapentin for neuropathy
Wound care consulted
Diabetes Mellitus Type II � Insulin Dependent-diabetic neuropathy
Lantus 10 units at bedtime (call the pharmacy to check coverage).
Aspart 6 units TID with meals.
Low-dose sliding scale for now.
Hemoglobin A1c: 9.8.
Started metformin 500 mg BID.
Needs case management for long-acting insulin.
Will require diabetic education.
Added gabapentin
Primary Hypertension
Started hydrochlorothiazide (HCTZ) given edema.
Monitor blood pressure.
Per patient, BP was normal at recent PCP follow-up; prefers to avoid multiple antihypertensives. Trend for now.
DVT Prophylaxis
Lovenox subcutaneous.
Code Status
Full Code
Diet: DM diet
Disposition: Continue cefazolin, added gabapentin
Total time spent on today's encounter was 55 minutes which included time spent in counseling the patient/family regarding diagnosis and treatment plan as listed above, goals of care, and symptom management. Case was discussed with nursing staff,
specialists, and care coordinators/case management. All labs and imaging personally reviewed by me. Remainder the time spent in detailed review of previous records, lab data, imaging, and other medical provider documentation.
Part of this note was created using voice recognition system. Occasional wrong word or �sound alike� substitutions may have inadvertently occurred due to the inherent limitations of voice recognition software. If noted kindly bring it to my
attention for correction.
Anticipated Discharge: Within 24 hours
Subjective/Interval History
-
Date of Service: November 18, 2025
Patient seen and examined at bedside, denies any chest pain or shortness of breath, patient complaining of neuropathic lower extremity pain more on the left.
Still significant redness in the left lower extremity and pain.
Objective Data
-
Vital Signs:
Vital Signs
Temp Pulse Resp BP Pulse Ox
98 F 76 18 160/88 98
11/17/25 23:15 11/17/25 23:15 11/17/25 23:15 11/17/25 23:15 11/18/25 04:11
I&O
11/17/25 11/18/25 11/19/25
06:59 06:59 06:59
Intake Total 480 / 480
Balance 480 / 480
Physical Exam
-
General: Well Developed, Well Nourished, No Apparent Distress and Comfortable
HEENT: Normocephalic, Atraumatic, Moist Mucous Membranes, No Ptosis, PERRLA and Nose Appears Normal
Respiratory: Clear to Auscultation and Non Labored Respirations
Cardiac: Regular Rhythm and S1/S2
Breast: Deferred by me
GI: Soft, Nontender, Nondistended and Normal Bowel Sounds
Genito-urinary: No Costovertebral Tender
Musculoskeletal: No Clubbing, No Cyanosis, No Edema, Edema, Right Lower Extrem and Edema, Left Lower Extrem
Skin: Warm, Lesions (Superficial 2 lesions on the left leg shaft.) and Other (Erythema)
Neuro: Awake, Alert, Oriented, AO x 3 and No Motor Deficits
Psych: Calm
Data Reviewed
-
Diagnostic Radiology: Image personally visualized and interpreted and Report Reviewed by me
CT Scan: Image personally visualized and interpreted and Report Reviewed by me
Ultrasound: Image personally visualized and interpreted and Report Reviewed by me
MRI: Image personally visualized and interpreted and Report Reviewed by me
Medical Tests (Nuc Med, Echo etc): Image personally visualized and interpreted and Report Reviewed by me
Labs: Labs Reviewed by me
Old Records: Reviewed
[2025-11-18 08:45] LABS: Glucose - Point of Care 143 mg/dl (70-99)
[2025-11-18] MEDS: NOVOLOG FLEXPEN-LOW RESISTANCE SC ×2 (09:50→17:34)
[2025-11-18] MEDS: GLUCOPHAGE 500 MG PO ×2 (09:53→18:04)
[2025-11-18] MEDS: ORETIC 12.5 MG PO (09:53)
[2025-11-18] MEDS: NOVOLOG FLEXPEN 8 UNITS SC ×3 (09:54→18:05)
--- NOTE | 2025-11-18 11:31 | WOUNDNOTE ---
[facility] RN note: Patient admitted with cellulitis of L leg
See H&P for complete history.
PMH: Past Medical History: Reports IDDM and Other (Chronic lymphedema)
Past Surgical History: Reports Appendectomy
Wound Location and type/assessment: Patient admitted with: L leg partial thickness ulcers and cellulitis. Patient reports he accidentally scraped leg on edge of cardboard box causing wounds. Patient assessed with Dr. Denise at bedside. Cellulitis
resolving and edema. + palpable pedal pulses. Base of wounds red, edges dark maroon. Patient reports painful upon cleaning or changing dressing. No odor and drainage small serosanguineous. Hgb A1c is 9.8, development educator on consult. Heels intact.
R lower medial leg with patch of dry skin vs rash, appears chronic. 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
Appetite: Good, encouraged better control of blood sugars to help with wound healing.
Pressure redistribution devices in place: On air mattress. Patient is ad bryan. L leg elevated on pillows. Leg elevation encouraged when sitting in recliner chair. Patient confirmed he has a recliner chair at home.
Plan: Local wound care applied today and baljeet wrap knee high, tolerating. Called [facility] for honey gel, can start tomorrow. Dr. Denise approved of the above. Supplies at bedside, wound care/compression teaching done with patient.
Will confirm orders with hospitalist and updated nurse Pat. Updated care plan and will follow as needed.
Note to case management of equipment requested for discharge: None.
Recommend follow up at wound care center upon discharge.
[2025-11-18 12:17] LABS: Glucose - Point of Care 185 mg/dl (70-99)
[2025-11-18] MEDS: NOVOLOG FLEXPEN-LOW RESISTANCE 1 UNITS SC (13:17)
[2025-11-18 15:00] VITALS: BP 140/74
--- NOTE | 2025-11-18 15:45 | CM ---
Addendum entered by Valencia Gandhi 11/19/25 13:57:
Confirmed with [facility] that Glargine is covered with his plan. Dc home today. no needs identified
Original Note:
Spoke with patient in room .
Informed him he was changed to inpatient .
Pt lives alone and will return to work after discahrge.
Explained he would have to be home bound for VN .
He will follow up with wound care center
PLAN Home no needs
[2025-11-18 17:27] LABS: Glucose - Point of Care 138 mg/dl (70-99)
[2025-11-18] MEDS: NEURONTIN 100 MG PO ×2 (18:04→21:55)
[2025-11-18] MEDS: LOVENOX 40 MG SC (18:04)
[2025-11-18 21:40] LABS: Glucose - Point of Care 150 mg/dl (70-99)
[2025-11-18] MEDS: XALATAN OPHTHALMIC SOLUTION 1 DROP BOTH EYES (21:55)
[2025-11-18] MEDS: LANTUS 0.1 UNITS SC (21:56)
[2025-11-18 23:00] VITALS: BP 142/86
[2025-11-19] MEDS: ANCEF 10 IV ×2 (03:46→12:45)
[2025-11-19 07:33] LABS: Glucose - Point of Care 159 mg/dl (70-99)
[2025-11-19 07:48] VITALS: BP 148/89
[2025-11-19 08:06] LABS: Blood Urea Nitrogen 19 mg/dl (9-20); Calcium 9.0 mg/dl (8.4-10.2); Carbon Dioxide 27 mmol/L (22-30); Chloride 100 mmol/L (98-107); Estimated Creatinine Clearance 71 ml/min; Glucose 157 mg/dl (70-99); Potassium 3.8 mmol/L (3.5-5.1); Sodium 134 mmol/L (135-145); eGFR > 60.00
[2025-11-19 08:15] LABS: Hematocrit 43.0 % (39.0-52.0); Hemoglobin 13.1 g/dL (13.0-18.0); Mean Corp Hgb Conc. 30.5 g/dL (33.0-37.0); Mean Corpuscular Volume 63.8 fL (80.0-94.0); Platelet Count 200 10^3/uL (130-400); Red Cell Dist. Width 18.6 % (11.5-14.5)
[2025-11-19] MEDS: NEURONTIN 100 MG PO (08:49)
[2025-11-19] MEDS: GLUCOPHAGE 500 MG PO (08:50)
[2025-11-19] MEDS: ORETIC 12.5 MG PO (08:50)
[2025-11-19] MEDS: NOVOLOG FLEXPEN 8 UNITS SC ×2 (08:51→12:46)
[2025-11-19] MEDS: NOVOLOG FLEXPEN-LOW RESISTANCE 1 UNITS SC ×2 (08:51→12:46)
--- NOTE | 2025-11-19 10:53 | W.PN.HOSP.TC ---
Today's Communication/Plan
-
Discharge home today
Assessment / Plan
Assessment / Plan
Impression:
70-year-old or insulin-dependent diabetes who presents to ED with cellulitis of the left lower extremity after developing a superficial open wound from laceration against a cardboard box.
Patient started on IV cefazolin, continued on insulin for uncontrolled diabetes.
Lower extremity cellulitis slowly improving, will switch to oral doxycycline and cefdinir.
Also added gabapentin for neuropathy
Assessment/plan:
LLE Cellulitis (likely complicated by chronic lymphedema)
No recent antibiotics or hospitalizations.
Continue IV cefazolin , slowly improving.
Wound care consult in the morning.
MRSA swab checked � negative.
Elevate both legs.
11/18
Patient still with significant redness and now with neuropathic pain, required more monitoring as inpatient.
For now we will continue cefazolin, added gabapentin for neuropathy
Wound care consulted
Diabetes Mellitus Type II � Insulin Dependent-diabetic neuropathy
Lantus 10 units at bedtime (call the pharmacy to check coverage).
Aspart 6 units TID with meals.
Low-dose sliding scale for now.
Hemoglobin A1c: 9.8.
Started metformin 500 mg BID.
Needs case management for long-acting insulin.
Will require diabetic education.
Added gabapentin
Primary Hypertension
Started hydrochlorothiazide (HCTZ) given edema.
Monitor blood pressure.
Per patient, BP was normal at recent PCP follow-up; prefers to avoid multiple antihypertensives. Trend for now.
DVT Prophylaxis
Lovenox subcutaneous.
Code Status
Full Code
Diet: DM diet
Disposition: Discharge home today
Total time spent on today's encounter was 55 minutes which included time spent in counseling the patient/family regarding diagnosis and treatment plan as listed above, goals of care, and symptom management. Case was discussed with nursing staff,
specialists, and care coordinators/case management. All labs and imaging personally reviewed by me. Remainder the time spent in detailed review of previous records, lab data, imaging, and other medical provider documentation.
Part of this note was created using voice recognition system. Occasional wrong word or �sound alike� substitutions may have inadvertently occurred due to the inherent limitations of voice recognition software. If noted kindly bring it to my
attention for correction.
Anticipated Discharge: Today
Subjective/Interval History
-
Date of Service: November 19, 2025
Patient seen and examined at bedside, denies any chest pain or shortness of breath, no abdominal pain, no nausea, no vomiting, no diarrhea or constipation.
Objective Data
-
Labs:
Laboratory Results
11/19/25
07:10
WBC 4.9
Hgb 13.1
Hct 43.0
Plt Count 200
Sodium 134 L
Potassium 3.8
Chloride 100
Carbon Dioxide 27
BUN 19
Creatinine 1.2
Glucose 157 H
Calcium 9.0
Vital Signs:
Vital Signs
Temp Pulse Resp BP Pulse Ox
97.8 F 66 17 148/89 96
11/19/25 07:48 11/19/25 07:48 11/19/25 07:48 11/19/25 07:48 11/19/25 07:48
I&O
11/18/25 11/19/25 11/20/25
06:59 06:59 06:59
Intake Total 480 / 480 480 / 480
Balance 480 / 480 480 / 480
Physical Exam
-
General: Well Developed, Well Nourished, No Apparent Distress and Comfortable
HEENT: Normocephalic, Atraumatic, Moist Mucous Membranes, No Ptosis, PERRLA and Nose Appears Normal
Respiratory: Clear to Auscultation and Non Labored Respirations
Cardiac: Regular Rhythm and S1/S2
Breast: Deferred by me
GI: Soft, Nontender, Nondistended and Normal Bowel Sounds
Genito-urinary: No Costovertebral Tender
Musculoskeletal: No Clubbing, No Cyanosis, No Edema, Edema, Right Lower Extrem and Edema, Left Lower Extrem
Skin: Warm, Lesions (Superficial 2 lesions on the left leg shaft.) and Other (Erythema)
Neuro: Awake, Alert, Oriented, AO x 3 and No Motor Deficits
Psych: Calm
[2025-11-19 11:46] LABS: Glucose - Point of Care 163 mg/dl (70-99)
--- NOTE | 2025-11-19 12:13 | CM ---
Chart reviewed and consult reviewed
Pt states that he does NOT assistance with insulin at this time
He was just talking to our health promotion educator
no needs at this time
--- NOTE | 2025-11-19 13:10 | W.DCSUMMARY ---
Discharge Summary
Discharge Data
Date of Admission: 11/16/25
Date of Discharge: 11/19/25
Total time spent discharging patient (in min): 40
-
Pending Results: No
Hospital Course
Hospital course
70-year-old or insulin-dependent diabetes who presents to ED with cellulitis of the left lower extremity after developing a superficial open wound from laceration against a cardboard box.
Patient started on IV cefazolin, continued on insulin for uncontrolled diabetes.
Lower extremity cellulitis slowly improving, will switch to oral doxycycline and cefdinir.
Also added gabapentin for neuropathy
During hospitalization patient was treated from the following
LLE Cellulitis (likely complicated by chronic lymphedema)
No recent antibiotics or hospitalizations.
Continue IV cefazolin , slowly improving.
Wound care consult in the morning.
MRSA swab checked � negative.
Elevate both legs.11/18
Patient still with significant redness and now with neuropathic pain, required more monitoring as inpatient.
For now we will continue cefazolin, added gabapentin for neuropathy
Wound care consulted
Diabetes Mellitus Type II � Insulin Dependent-diabetic neuropathy
Lantus 10 units at bedtime (call the pharmacy to check coverage).
Aspart 6 units TID with meals.
Low-dose sliding scale for now.
Hemoglobin A1c: 9.8.
Started metformin 500 mg BID.
Needs case management for long-acting insulin.
Will require diabetic education.
Added gabapentin
Primary Hypertension
Started hydrochlorothiazide (HCTZ) given edema.
Monitor blood pressure.
Per patient, BP was normal at recent PCP follow-up; prefers to avoid multiple antihypertensives. Trend for now.
DVT Prophylaxis
Lovenox subcutaneous.
Code Status
Full Code
Diet: DM diet
Disposition: Discharge home today
Total time spent on today's encounter was 40 minutes which included time spent in counseling the patient/family regarding diagnosis and treatment plan as listed above, goals of care, and symptom management. Case was discussed with nursing staff,
specialists, and care coordinators/case management. All labs and imaging personally reviewed by me. Remainder the time spent in detailed review of previous records, lab data, imaging, and other medical provider documentation.
Anticipated Discharge: Today
Discharge Plan
-
Patient Disposition: Home (Routine Discharge)
Discharge Diagnosis/Procedures: Left lower extremity cellulitis.
Type 2 diabetes
Hypertension
Diet: Low Sodium and Diabetic, Carb Controlled
Activity Restrictions/Additional Instructions:
Wound Care Instructions
L leg: clean with soap and water(can shower) smear of honey gel to open ulcers, adaptic and dry dressing, change daily and prn drainage.
Shon wrap knee high daily, can remove at bedtime. Can also use own compression stockings when home if can tolerate.
Leg elevation when sitting
Control blood sugars, increase protein in diet
Follow up at wound care center if not healing, call for an appointment.
Instructions: Type 2 diabetes, Diabetes and diet
Stand Alone Forms: Return to Work
Referrals:
Michoacano Jolly MD [Family Provider, Internal Medicine]
Prescriptions:
New
insulin glargine [Lantus Solostar U-100 Insulin] 100 unit/mL (3 mL) insulin pen
10 unit SC QPM Qty: 15 0RF
metformin 500 mg Tablet
500 mg PO BID@0800,1700 90 Days Qty: 180 2RF
gabapentin 100 mg Capsule
100 mg PO TID 90 Days Qty: 270 0RF
hydrochlorothiazide 12.5 mg Tablet
12.5 mg PO DAILY 90 Days Qty: 90 0RF
doxycycline hyclate 100 mg capsule
100 mg PO BID Qty: 10 0RF
cefdinir 300 mg capsule
300 mg PO BID Qty: 10 0RF
Continued
latanoprost 0.005 % Drops
1 drp BOTH EYES HS
tamsulosin 0.4 mg Capsule
0.4 mg PO DAILY
simvastatin 5 mg Tablet
5 mg PO DAILY
finasteride 5 mg Tablet
5 mg PO DAILY
omeprazole 20 mg Tablet,Delayed Release (Dr/Ec)
20 mg PO DAILY
Changed
insulin lispro 100 unit/mL Insulin Pen
8 unit SC AC Qty: 0 0RF
Discharge Orders:
Discharge Patient (As Directed); Ordered 11/19/25
Ordered By: Aaliyah Denise
Discharge Date and Time
Print Language: CITIZEN OF [place]
--- NOTE | 2025-11-19 13:25 | PTCARENOTE ---
Addendum entered by Anna Church RN 11/19/25 14:13:
addendum: patient admits to taking aspart after meals on occasion, Reviewed proper timing of aspart. He has been checking 4/day. 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
Original Note:
11/19/2025 DIABETES EDUCATION CONSULT
I met with patient to review diabetes management. He has had DM for year, attended diabetes education classes years ago. He takes aspart, was previously prescribed a long acting insulin but states insurance wouldn't approve. He was unable to
resolve insurance issues with his End[facility] and [facility] so he stopped taking. States he would take 4 units before bedtime if his BS is over 200 mg/dL. Confirmed with his [facility] that glargine is covered with insurance Also states his BS at home has been in the
200's.
I explained the onset of action of rapid acting and long acting insulin, and educated that he should not take aspart (meal time insulin) without eating.
I verbally reviewed insulin injection technique, timing, and storage. Discussed normal target glucose ranges and a monitoring schedule 15 minutes before each meal when prescribed Novolog, and before bedtime.
Mr. Pichardo declined glucometer demonstration as he checks his glucose at home.
I educated on physiology of T2D, organ damage, managing with medications, monitoring BG, nutrition, activity, sleep and managing stress. I reinforced signs of hyperglycemia, hypoglycemia and hypoglycemia protocol; BS parameters and recommended HbA1c
goals, glucometer and CGM instructions, glucose tracker, medic alert bracelet and 1:1 diabetes education services. Written material provided.
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 Carias for post d/c appointment and to monitor medication and blood glucose levels. Patient verbalized understanding.
[2025-11-19 14:44] VITALS: BP 136/99
== END 2025-11-19 14:54 | disposition home or self-care (01) | DRG 638 ==
LOC: 1 ACUTE 11:59
PROVIDERS: Emergency Medicine; ADMITTING PHYSICIAN Internal Medicine; ATTENDING PHYSICIAN General Practice; EMERGENCY PHYSICIAN Student in an Organized Health Care Education/Training Program; FAMILY PHYSICIAN Internal Medicine Geriatric Medicine
DX: E11.69 Type 2 diabetes mellitus with other specified complication (principal); L03.116 Cellulitis of left lower limb; E11.65 Type 2 diabetes mellitus with hyperglycemia; I10 Essential (primary) hypertension; Z79.4 Long term (current) use of insulin; I89.0 Lymphedema, not elsewhere classified; Z90.49 Acquired absence of other specified parts of digestive tract; E11.40 Type 2 diabetes mellitus with diabetic neuropathy, unspecified
CPT/HCPCS: 80048; 80053; 82962; 83036; 83880; 85025; 85027; 87070; 96374; 99284